=== PATIENT | female | born 1935 | race Caucasian/White ===

== ENCOUNTER 2018-03-01 22:38 | Inpatient (IN) | payer OTHER ==
[~2018-03-01] VITALS: Ht 157.5 cm; Wt 37.1 kg
--- NOTE | ~2018-03-01 | HC ---
[facility] [place] [address] CONSULTATION Name: COURTNEY BARBA Room #: 203-P [facility] IN M.R.#: [id number] Admission: 03/02/18 Attend Phys: Sreekanth Lin Discharge: 03/02/18 Date of : 35 Report #: [id number] THIS REPORT FOR: //name// CC: Sreekanth GaffneyMee HISTORY OF PRESENT ILLNESS: The patient is an 83-year-old woman with metastatic lung cancer, hypertension and diabetes. She has been hospitalized several times this month at [facility] in early February. She was admitted with dehydration. Following that hospitalization, she had a home health nurse who has been coming out to her house several days a week. She has been off of her chemotherapy due to poor oral intake over the past month. A visiting nurse came to her house yesterday and her blood pressure was 190. She was instructed to go to the Emergency Department, which she did. Her EKG was normal other than sinus bradycardia. She was given intravenous labetalol. Her initial troponin was normal. She was discharged home with improved blood pressure. Shortly after getting home became confused and disoriented. She was taken back to the Emergency Department where she had a variety of studies done including a CAT scan of her head, followup EKG, chest x-ray and additional screening blood work. Troponin was minimally elevated at 0.182. She was transferred for a non-STEMI at [facility]. She is currently awake, alert. She denies chest pain, pressure or ischemic symptoms. No heart failure symptoms. As part of her chemotherapy protocol, she has had echocardiograms performed almost monthly, a report that shows normal left ventricular systolic function without significant valvular heart disease. No history of near syncope or syncope. She reports that when the nurse comes to her house to check her blood pressure as well as when her blood pressures checked in her oncologist's office, it is usually in the 180-200 range. Yesterday's high reading was nothing unusual. Her family is with her today, reports that she has been inconsistently taking her medicine. When she does take her medicine, blood pressure is well controlled. ALLERGIES: No known drug allergies. MEDICATIONS: Atorvastatin 40 mg daily, metformin 500 mg twice daily, metoprolol 100 mg twice daily, quinapril 10 mg daily. The patient reports that she does not like taking medicine. It is not that she cannot do it. She gives her dog insulin 3 times a day without difficulty. Her past history, medical records have been reviewed and include history of lung cancer with recurrence, hypertension, diabetes, dyslipidemia. SOCIAL HISTORY: Former smoker, lives independently. FAMILY HISTORY: Unremarkable for premature coronary disease. REVIEW OF SYSTEMS: All systems negative except as that noted above. [facility] [address] [place] [address] CONSULTATION Name: BARBACOURTNEY Room #: 203-P DIS IN M.R.#: [id number] Admission: 03/02/18 Attend Phys: Sreekanth Lin Discharge: 03/02/18 Date of : 35 Report #: [id number] PHYSICAL EXAMINATION: GENERAL: A pleasant woman in no distress. VITAL SIGNS: Blood pressure is 160/70, heart rate is 76 and regular. She is afebrile. HEENT: There are neither xanthelasma, subcutaneous xanthomata, oral mucosal or digital cyanosis or kyphoscoliosis present. CHEST: Clear to auscultation and percussion. CARDIOVASCULAR: Regular rate and rhythm with normal S1, S2. No murmurs or rubs. ABDOMEN: Soft and nontender. EXTREMITIES: Without edema. Radial pulses are 2+. NEUROLOGIC: She is alert with a nonfocal exam. LABORATORY DATA: Sodium is 140, creatinine 1.23, glucose 181. Troponin 0.182. IMAGING: EKG, sinus bradycardia, otherwise normal tracing. IMPRESSION: 1. Type 2 myocardial infarction related to supply demand mismatch in the setting of hypertension. 2. Hypertension with a variable control. 3. Lung cancer with recurrence. 4. Diabetes. RECOMMENDATIONS: 1. Resume usual medicines. If she is taking her medicines consistently and has persistent blood pressure elevation, I would recommend increasing her quinapril dose. 2. Dietary salt restriction discussed. 3. No additional cardiovascular testing at this point. She has had recently documented normal left ventricular systolic function by echocardiography. Continued pharmacologic therapy and risk factor modification recommended. Thank you for asking me to participate in her care. These issues were discussed with the patient and her family. <ELECTRONICALLY SIGNED> By: Robin Salazar MD, [facility] 03/05/18 1256 [id number] [id number] Robin Salazar MD, FAC /nt
--- NOTE | ~2018-03-01 | H ---
[facility] [place] [address] HISTORY AND PHYSICAL Name: BARBACOURTNEY Rubens Room #: 203-P [facility] IN M.R.#: [id number] Admission: 03/02/18 Attend Phys: Sreekanth Lin Discharge: 03/02/18 Date of : 35 Report #: [id number] THIS REPORT FOR: //name// CC: Sreekanth Parson DATE OF SERVICE: 03/02/2018 ATTENDING PHYSICIAN: Dr. Lin. PRIMARY CARE PHYSICIAN: Dr. Tonya Parson. CHIEF COMPLAINT: Elevated troponin. HISTORY OF PRESENT ILLNESS: The patient is an 83-year-old female who was initially seen this evening at [facility] after her daughter found her on the floor very disoriented. Earlier in the day, her daughter had actually taken her to the ER at [place] because the home health nurse had noticed that her blood pressure was running very high with systolic blood pressures greater than 200. The patient had been asymptomatic at the time without any headaches, blurry vision, or chest pain. She was treated with labetalol on the initial visit and sent home. Later on is when the patient's daughter found her on the floor and brought her back to the ER. When she came back and on evaluation, her labs showed an elevated troponin of 0.23. She denies any history of coronary artery disease. She denies any recent exertional chest pain. She is on a medication for lung cancer that apparently can affect the heart. Her oncologist does do some heart testing regularly while she has been on this medication, called Tarceva. This was actually stopped on 02/09/2018 because of persistent weight loss and no appetite with recurrent episodes of dehydration. She had an echocardiogram according to the daughter in January of this year, which was normal. She does have a history of lung cancer initially diagnosed in 2007 and she underwent a left lower lobe lobectomy. Apparently, the cancer recurred in 2011 and there is metastasis to the other lung. She had been on an oral chemo for about 5 years and was then switched to Tarceva, but as stated above, she has been off of that for the last three weeks. She does state that at one point she has been on multiple blood pressure medications, but she stopped them all last year because she thought they were interacting with her chemo. Eventually, her primary doctor added back Accupril and metoprolol, which she says she has been taking and has not been missing any doses. Her daughter says that she becomes very anxious when she has blood pressure checked, which makes her blood pressures elevate even more. Since arrival here, the patient has continued to deny any chest pain, shortness of breath, nausea or vomiting or diaphoresis. She denies ever having a cardiac catheterization. PAST MEDICAL HISTORY: Lung cancer, diabetes, hypertension, anxiety, hyperlipidemia. [address] [address] HISTORY AND PHYSICAL Name: COURTNEY BARBA Room #: 203-P DIS IN M.R.#: [id number] Admission: 03/02/18 Attend Phys: Sreekanth Lin Discharge: 03/02/18 Date of : 35 Report #: [id number] PAST SURGICAL HISTORY: Left carotid endarterectomy, lung biopsy, left thoracotomy with a left lower lobe lobectomy in 2007, tonsillectomy, cataract repair. ALLERGIES: None. HOME MEDICATIONS: Lipitor 40 mg p.o. daily, metoprolol XL 100 mg b.i.d., quinapril 10 mg daily, calcium and vitamin D 1 tab daily and metformin 500 mg p.o. at noon and dinner time with 1000 mg in the morning and vitamin B12 one tab daily. SOCIAL HISTORY: The patient lives alone. She denies any tobacco, alcohol or drug use. She ambulates with a cane. She has been receiving home health. FAMILY HISTORY: Negative for heart disease. She does have family members with diabetes. REVIEW OF SYSTEMS: A 12-point review of systems was reviewed with the patient, otherwise negative unless stated in the HPI. PHYSICAL EXAMINATION: GENERAL: The patient is an alert, frail, cachectic-appearing female, in no acute distress. VITAL SIGNS: Temperature 36.8, heart rate 69, respirations 15. Initial blood pressure 195/79, oxygen 99% on room air. HEENT: PERRLA. Sclerae are nonicteric. Oral mucosa is pink, moist. NECK: Supple. There is no JVD noted. CARDIOVASCULAR: Normal S1, S2. No murmurs, rubs or gallops. RESPIRATORY: Breath sounds are clear bilaterally. She is diminished in the left lower lobe. Breathing is nonlabored. ABDOMEN: Flat, nontender, nondistended with positive bowel sounds. She does have a slight abdominal bruit with auscultation. VASCULAR: No peripheral edema noted. Pedal pulses are 2+. NEUROLOGIC: The patient is alert and oriented x 3. Speech is clear. She is answering questions appropriately and following commands. No focal neuro deficits noted. LABORATORY DATA AND DIAGNOSTICS: WBC is 5.2, hemoglobin 11.7, platelets 140. Sodium 140, potassium 4.1, BUN 23, creatinine 1.2, glucose is 181. LFTs are within normal limits. Lactate was 2.3, magnesium 1.9. Troponin at [place] was 0.23. CK is 44. EKG showed normal sinus rhythm. UA 2+ blood, 2+ protein, trace leukocyte esterase and no wbc's. 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 No acute changes. There was a possible calcified meningioma in the right parietal bone. [facility] [address] [place] [address] HISTORY AND PHYSICAL Name: COURTNEY BARBA Room #: 203-P [facility] IN .R.#: [id number] Admission: 03/02/18 Attend Phys: Sreekanth Lin Discharge: 03/02/18 Date of : 35 Report #: [id number] ASSESSMENT AND PLAN: 1. Non-ST elevation myocardial infarction. The patient is asymptomatic. She did have nitro paste placed prior to transfer. We will check a few more troponin levels and consult Cardiology for any further recommendations. This may be due to heart strain from having very high blood pressures yesterday. We will order echo for the morning and add aspirin daily. 2. Lung cancer. The patient is not currently on any treatment due to recent weight loss and dehydration. 3. Hypertensive urgency. Continue home blood pressure meds and add hydralazine p.r.n. Check an echo in the morning. 4. Diabetes. Blood sugar is stable. Hold metformin and add sliding scale insulin and follow Accu-Cheks. 5. Hyperlipidemia. Check a lipid panel. Continue statin therapy. 6. Mildly elevated lactate. No signs of infection seen. We will give gentle IV fluids and repeat a lactate level in the morning. 7. Code status. The patient does wish to remain a full code and her daughter agrees. 8. Deep venous thrombosis prophylaxis, place sequential compression devices. We will continue to follow the patient closely throughout the hospitalization and make changes based on clinical status. <ELECTRONICALLY SIGNED> By: HAIDER Elkins 03/02/182051 1 0636 HAIDER lEkins /nt
--- NOTE | ~2018-03-01 | EKG ---
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 : 1935 Requested By: Aimee Flores Order Number: [id number] MD: Robin Salazar Measurements Intervals [place] Rate: 67 P: 53 CT: 150 QRS: 15 QRSD: 86 T: 34 QT: 457 QTc: 483 Interpretive Statements Sinus rhythm Left ventricular hypertrophy Compared to ECG 10/10/2007 13:51:07 No significant change was found Electronically Signed On 03-02-2018 10:57:16 CDT by Robin Salazar [email or web address] <ELECTRONICALLY SIGNED> By: Robin Salazar MD, [facility] 03/02/18 1057 3 3 Robin Salazar MD, [facility] /EPI
[~2018-03-01 22:38] MED LIST: ACCURETIC 20-21 EACH PO; ASPIRIN325 PO; B-121000 MCG PO; CALCIUM 500 WI1 EAC3 PO; CLONIDINE0.1 PO; GLUCOPHAGE1000 MG PO; GLUCOPHAGE500 MG PO; GLUCOTROL XL2.5 MG PO; HYDRALAZINE 2525 M1 PO; LIPITOR40 MG PO; MULTIVITAMIN PO; NORVASC10 MG PO; QUINU10 PD PO; TOPROL XL100 MG PO
[2018-03-02 00:48] VITALS: BP 195/79
[2018-03-02 02:20] LABS: CHOLESTEROL 165 mg/dL (<200); HDL CHOLESTEROL 57 mg/dL (>40); LDL CHOLESTEROL 69 mg/dL (<100); TC:HDL 2.9 Ratio (Not establshd); TRIGLYCERIDE 199 mg/dL (<150); VLDL 40 mg/dL (<40)
[2018-03-02 02:27] LABS: SERUM ASSESSMENT Clear
[2018-03-02 05:48] VITALS: BP 172/66
[2018-03-02 07:52] VITALS: BP 163/72
[2018-03-02 12:04] VITALS: BP 205/80
[2018-03-02 16:50] VITALS: BP 205/80
[2018-03-02 19:11] LABS: GLYCOHEMOGLOBIN (HGB A1C) 5.7 % (4.8-5.6)
== END 2018-03-02 17:30 | disposition home or self-care (01) | DRG 281 ==
LOC: 2N 22:38
PROVIDERS: Nurse Practitioner Acute Care
DX: I21.4 Non-ST elevation (NSTEMI) myocardial infarction (principal); C34.90 Malignant neoplasm of unspecified part of unspecified bronchus or lung; E86.0 Dehydration; I16.0 Hypertensive urgency; F41.9 Anxiety disorder, unspecified; E78.5 Hyperlipidemia, unspecified; I10 Essential (primary) hypertension; E11.9 Type 2 diabetes mellitus without complications; Z90.2 Acquired absence of lung [part of]; Z79.899 Other long term (current) drug therapy; Z83.3 Family history of diabetes mellitus; Z79.84 Long term (current) use of oral hypoglycemic drugs; Z79.82 Long term (current) use of aspirin; Z85.828 Personal history of other malignant neoplasm of skin; Z92.21 Personal history of antineoplastic chemotherapy
CPT/HCPCS: 10081